=== PATIENT | male | born 1950 | race Caucasian/White ===

== ENCOUNTER → 2019-10-02 | Outpatient (CLI) | payer MEDICARE, OTHER ==
[2019-10-02 13:04] LABS: HCT 42.7 % (39.0-53.0); HGB 13.8 gm/dL (13.0-17.5); MCH 33.2 pg (25.0-35.0); MCHC 32.3 g/dL (31.0-37.0); MCV 102.8 fL (80.0-100.0); Macrocytosis Slight; Mean Platelet Volume 7.3; Platelet Count 314 k/uL (150-450); RBC 4.16 m/uL (4.30-5.90); RDW 15.1 % (11.5-15.5); WBC 9.6 k/uL (3.8-10.6)
[2019-10-02 20:25] LABS: ALT 48 U/L (10-49); AST 30 U/L (14-35); African American GFR (CKD) 53.9 (60.0-200.0); Alkaline Phosphatase 121 U/L (41-126); C Reactive Protein <0.4 mg/dL (0.0-0.8); Calcium 8.9 mg/dL (8.7-10.3); Chloride 112 mmol/L (96-109); Non-African American GFR(CKD) 46.5 (60.0-200.0); Potassium 3.9 mmol/L (3.5-5.5); Sodium 144 mmol/L (135-145); Total Bilirubin 0.4 mg/dL (0.3-1.2); Total Protein 6.2 g/dL (6.2-8.2)
[2019-10-02 21:26] LABS: Erythrocyte Sedimentation Rate 26 mm/Hr (0-20)
== END | disposition home or self-care (01) ==
LOC: LABWHC1 12:03
PROVIDERS: ATTEND Internal Medicine Rheumatology
DX: M06.09 Rheumatoid arthritis without rheumatoid factor, multiple sites (principal); Z79.899 Other long term (current) drug therapy
CPT/HCPCS: 36415; 80051; 82040; 82247; 82310; 82565; 84075; 84155; 84450; 84460; 84520; 85027; 85652; 86140

== ENCOUNTER → 2020-07-16 | Outpatient (CLI) | payer MEDICARE, OTHER ==
--- NOTE | 2020-07-16 11:16 | XR ---
EXAMINATION TYPE: XR KUB DATE OF EXAM: 07/16/2020 10:44 AM CLINICAL HISTORY: Right-sided kidney stone. TECHNIQUE: Two supine KUB images of the abdomen are obtained. COMPARISON: None. FINDINGS: Evaluation slightly suboptimal due to overlying bowel gas and patient's body habitus. No de finitive nephrolithiasis. Overall nonobstructive bowel gas pattern. Visualized osseous structures are intact. IMPRESSION: As above.
== END | disposition home or self-care (01) ==
LOC: RADXRMAIN 10:30
PROVIDERS: ATTEND Urology
DX: N20.0 Calculus of kidney (principal)
CPT/HCPCS: 74018

== ENCOUNTER 2020-11-25 10:59 | Emergency (ER) | payer MEDICARE, OTHER ==
[2020-11-25 11:08] VITALS: BP 127/76; PULSE 68; RESP 20; TEMP 98.2
[2020-11-25] MEDS ORDERED: AMOXIC-POT CLAV 875MG STARTER PACK 2 TAB BTL PO STA (11:42)
--- NOTE | 2020-11-25 11:45 | ED ---
General Adult HPI - General Chief complaint: Extremity Problem,Nontraumatic Stated complaint: L Finger Swelling Time Seen by Provider: 11/25/20 11:15 Source: patient Mode of arrival: ambulatory Limitations: no limitations - History of Present Illness Initial comments: 70-year-old male presents to the emergency room for a chief complaint of left finger swelling. Patient states this has been ongoing for a couple days. States it started on one side of his finger and seems to be spreading. Patient states it is painful to touch. He denies fevers or chills.Patient has no other complaints at this time including shortness of breath, chest pain, abdominal pain, nausea or vomiting, headache, or visual changes. - Related Data Home Medications Medication Instructions Recorded Confirmed Insulin Glulisine [Apidra] 0 unit SQ DIRECTED 08/11/14 08/11/14 Tamsulosin HCl [Flomax] 0.4 mg PO DAILY 08/11/14 08/11/14 metFORMIN HCL [Glucophage] 1,000 mg PO BID 08/11/14 08/11/14 metHOTREXate sodium [Methotrexate] 2.5 mg PO DAILY 08/11/14 08/11/14 Previous Rx's Medication Instructions Recorded Amoxicillin/Potassium Clav 1 tab PO Q12HR #20 tab 11/25/20 [Augmentin 875-125 Tablet] Gcbayfky-Uuautlyxxa-Hnhj Oint 1 applic TOPICAL TID 10 Days #14 gm 11/25/20 [Triple Antibiotic Ointment] Allergies Allergy/AdvReac Type Severity Reaction Status Date / Time sulfamethoxazole Allergy Rash/Hives Verified 11/25/20 11:08 [From Bactrim] trimethoprim [From Bactrim] Allergy Rash/Hives Verified 11/25/20 11:08 Review of Systems ROS Statement: Those systems with pertinent positive or pertinent negative responses have been documented in the HPI. ROS Other: All systems not noted in ROS Statement are negative. Past Medical History Past Medical History: Diabetes Mellitus, Prostate Disorder, Rheumatoid Arthritis (RA), Thyroid Disorder History of Any Multi-Drug Resistant Organisms: None Reported Past Surgical History: No Surgical Hx Reported Past Psychological History: No Psychological Hx Reported Smoking Status: Never smoker Past Alcohol Use History: Occasional Past Drug Use History: None Reported General Exam Limitations: no limitations General appearance: alert, in no apparent distress Head exam: Present: atraumatic Eye exam: Present: normal appearance, PERRL, EOMI. Absent: scleral icterus ENT exam: Present: normal exam, mucous membranes moist Neck exam: Present: normal inspection, full ROM. Absent: tenderness Respiratory exam: Present: normal lung sounds bilaterally. Absent: respiratory distress, wheezes Cardiovascular Exam: Present: regular rate, normal rhythm, normal heart sounds Extremities exam: Present: normal capillary refill (Capillary refill less than 2 seconds in all digits.), other (paronychia noted to the left second finger, ulnar aspect of the finger. Purulent material evident. No spreading or streaking redness.) Course Vital Signs 11/25/20 11:06 Temperature 98.2 F Pulse Rate 68 Respiratory 20 Rate Blood Pressure 127/76 O2 Sat by Pulse 99 Oximetry Procedures - Incision & Drainage Consent Obtained: verbal consent Indication: paronychia Site: hand Size (cm): 1 I&D Cleaning Method: Chloroprep Scalpel Used: #11 I&D Drainage Obtained: Pus Patient Tolerated Procedure: well, no complications Medical Decision Making - Medical Decision Making Incision and drainage performed. Purulent material expelled. Patient put on Augmentin. Return parameters discussed. Disposition Clinical Impression: Paronychia Disposition: HOME SELF-CARE Condition: Good Instructions (If sedation given, give patient instructions): Paronychia (ED) Additional Instructions: Please do warm compresses or warm soaks frequently. Take antibiotic as directed. Apply antibiotic ointment as directed. Follow up with your doctor. If symptoms are worsening after 2 days of antibiotics return to the emergency room. Prescriptions: Amoxicillin/Potassium Clav [Augmentin 875-125 Tablet] 1 tab PO Q12HR #20 tab Etwhttsd-Wbmlcygqkh-Rrrc Oint [Triple Antibiotic Ointment] 1 applic TOPICAL TID 10 Days #14 gm Is patient prescribed a controlled substance at d/c from ED?: No Referrals: Ritu Rob MD [Primary Care Provider] - 1-2 days Time of Disposition: 11:43
== END 2020-11-25 11:51 | disposition home or self-care (01) ==
LOC: EC 10:59
DX: L03.012 Cellulitis of left finger (principal); E11.9 Type 2 diabetes mellitus without complications; M06.9 Rheumatoid arthritis, unspecified; Z79.84 Long term (current) use of oral hypoglycemic drugs; Z88.2 Allergy status to sulfonamides; Z88.1 Allergy status to other antibiotic agents; Z79.899 Other long term (current) drug therapy
CPT/HCPCS: 10060; 99283

== ENCOUNTER 2021-01-29 14:13 | Emergency (ER) | payer MEDICARE, OTHER ==
[2021-01-29 14:28] VITALS: RESP 18
--- NOTE | 2021-01-29 15:39 | ED ---
ENT HPI - General Chief complaint: ENT Stated complaint: mouth infection Time Seen by Provider: 01/29/21 15:00 Source: patient Mode of arrival: ambulatory Limitations: no limitations - History of Present Illness Initial comments: 70 year-old male patient presents to the emergency department for evaluation of sores in his mouth. States he feels like it is an infection. States it started two weeks ago and has persisted. Feels like it is getting worse. Denies any soreness of the tongue, sore throat, or painful swallowing. Denies any bleeding from the areas. Denies any new medications. Denies fever, chills, nausea, or vomiting. Denies history of similar symptoms. Does have history of diabetes and rheumatoid arthritis. Takes Methotrexate twice weekly. - Related Data Home Medications Medication Instructions Recorded Confirmed Insulin Glulisine [Apidra] 0 unit SQ DIRECTED 08/11/14 08/11/14 Tamsulosin HCl [Flomax] 0.4 mg PO DAILY 08/11/14 08/11/14 metFORMIN HCL [Glucophage] 1,000 mg PO BID 08/11/14 08/11/14 metHOTREXate sodium [Methotrexate] 2.5 mg PO DAILY 08/11/14 08/11/14 Previous Rx's Medication Instructions Recorded Amoxicillin/Potassium Clav 1 tab PO Q12HR #20 tab 11/25/20 [Augmentin 875-125 Tablet] Secledkb-Suedoyrlth-Ylcq Oint 1 applic TOPICAL TID 10 Days #14 gm 11/25/20 [Triple Antibiotic Ointment] Nystatin 100,000 Unit/ml Susp 5 ml PO QID #280 ml 01/29/21 [Mycostatin Oral Susp] Allergies Allergy/AdvReac Type Severity Reaction Status Date / Time sulfamethoxazole Allergy Rash/Hives Verified 01/29/21 14:27 [From Bactrim] trimethoprim [From Bactrim] Allergy Rash/Hives Verified 01/29/21 14:27 Review of Systems ROS Statement: Those systems with pertinent positive or pertinent negative responses have been documented in the HPI. ROS Other: All systems not noted in ROS Statement are negative. Past Medical History Past Medical History: Diabetes Mellitus, Prostate Disorder, Rheumatoid Arthritis (RA), Thyroid Disorder History of Any Multi-Drug Resistant Organisms: None Reported Past Surgical History: No Surgical Hx Reported Past Psychological History: No Psychological Hx Reported Smoking Status: Never smoker Past Alcohol Use History: Occasional Past Drug Use History: None Reported General Exam Limitations: no limitations General appearance: alert, in no apparent distress, other ENT exam: Present: mucous membranes moist, other (Large white ulcerative lesions to the bucchal mucosa, right, left, and lower lip. No bleeding. No tongue, p alate, or throat lesions noted. ). Absent: normal oropharynx Respiratory exam: Present: normal lung sounds bilaterally. Absent: respiratory distress, wheezes, rales, rhonchi, stridor Cardiovascular Exam: Present: regular rate, normal rhythm, normal heart sounds. Absent: systolic murmur, diastolic murmur, rubs, gallop, clicks Neurological exam: Present: alert, oriented X3, CN II-XII intact Psychiatric exam: Present: normal affect, normal mood Skin exam: Present: warm, dry, intact, normal color. Absent: rash Course Vital Signs 01/29/21 14:22 Temperature 97.7 F Pulse Rate 102 H Respiratory 18 Rate Blood Pressure 118/69 O2 Sat by Pulse 97 Oximetry Medical Decision Making - Medical Decision Making 70-year-old male patient presents to the emergency department today for evaluation of sores in its mouth. Symptoms for the last 2 weeks. Physical examination did reveal swollen white plaques over the bucchal mucosa. He is afebrile. Patient was evaluated by my attending Dr. Fofana. It is felt this could be some sort of mucositis vs fungal oral infection. We will treat with COOLS solution and nystatin swish and spit. Discharged to follow-up with the dentist next week as he has planned. He is instructed to contact his academic specialist for further evaluation. Return parameters were discussed in detail. He verbalizes understanding and agrees with this plan. Case discussed with my attending Dr. Fofana. Disposition Clinical Impression: Mucositis Disposition: HOME SELF-CARE Condition: Good Instructions (If sedation given, give patient instructions): Oral Mucositis (ED) Additional Instructions: Use Cool solution three times daily as needed. Take nystatin swish and swallow until 24-48 hours after symptoms resolve. Follow up with your academic specialist as soon as possible for further evaluation. Return to the emergency department immediately if you're unable to eat or if he develops any fevers or worsening symptoms. Prescriptions: Nystatin 100,000 Unit/ml Susp [Mycostatin Oral Susp] 5 ml PO QID #280 ml Is patient prescribed a controlled substance at d/c from ED?: No Referrals: None,Stated [Primary Care Provider] - 1-2 days Time of Disposition: 15:45
[2021-01-29] MEDS ORDERED: MAG HYDROX/AL HYDROX/SIMETH 30 ML, LIDOCAINE VISCOUS 30 ML, diphenhydrAMINE ELIXIR 75 M... PO STA ×4 (15:42)
[2021-01-29 17:43] VITALS: BP 112/70; PULSE 98; TEMP 98.1
== END 2021-01-29 17:40 | disposition home or self-care (01) ==
LOC: EC 14:13
DX: K12.30 Oral mucositis (ulcerative), unspecified (principal); E11.9 Type 2 diabetes mellitus without complications; Z88.2 Allergy status to sulfonamides; Z88.1 Allergy status to other antibiotic agents; Z79.4 Long term (current) use of insulin
CPT/HCPCS: 99283